=== PATIENT | female | born 1995 | race Caucasian/White ===

== ENCOUNTER 2019-10-22 18:35 | Emergency (ER) | payer OTHER ==
[~2019-10-22] VITALS: Ht 170.2 cm; Wt 72.6 kg
[~2019-10-22 18:35] MED LIST: BACTRIM DS TAB1 EACH PO; MACROBID 100 M100 M1 PO; MACROBID 100 M100 M3 PO; MUSCLE RELAXANT
[2019-10-22] MEDS ORDERED: ZYRTEC10 M5 PO (19:31)
[2019-10-22] MEDS ORDERED: HYDROCODON-ACE1 EAC8 PO (21:12)
[2019-10-22] MEDS ORDERED: CIPROFLOXIN HC2.5 M1 OPHTHALMIC (21:12)
[2019-10-22 21:35] VITALS: BP 148/98
== END 2019-10-22 21:36 | disposition home or self-care (01) ==
LOC: M.ERS 18:35
DX: S05.02XA Injury of conjunctiva and corneal abrasion without foreign body, left eye, initial encounter (principal); J45.909 Unspecified asthma, uncomplicated; F41.9 Anxiety disorder, unspecified; F31.9 Bipolar disorder, unspecified; X58.XXXA Exposure to other specified factors, initial encounter; Y93.89 Activity, other specified; Y92.89 Other specified places as the place of occurrence of the external cause; Y99.8 Other external cause status